=== PATIENT | male | born 1985 | race African-American/Black ===

== ENCOUNTER 2018-04-16 06:57 | Emergency (ER) | payer SELFPAY ==
[2018-04-16 08:03] LABS: #Eosinphils 0.1 thou/uL (0.0-0.7); #Lymphocytes 1.6 thou/uL (1.20-3.40); #Monocytes 1.4 thou/uL (0.11-0.59); #Neutrophils 6.9 thou/uL (1.40-6.50); %Basophils 0.3 % (0.0-1.0); %Eosinophils 0.9 % (0.0-10.0); %Lymphocytes 15.9 % (21.0-51.0); %Monocytes 13.9 % (0.0-10.0); Hemoglobin 14.1 g/dL (14.0-18.0); Mean Corpuscular HGB CONC 32.8 g/dL (32.0-36.0); Mean Corpuscular Hemoglobin 27.6 pg (27.0-31.0); Mean Corpuscular Volume 84.2 fL (78.0-98.0); Mean Platelet Volume 6.2 fL (7.4-10.4); Platelet Count 330 thou/uL (130-400); RBC Distribution Width 12.4 % (11.5-14.5)
[2018-04-16 08:23] LABS: ALT (SGPT) 31 U/L (8-55); AST (SGOT) 27 U/L (5-34); Albumin 4.1 g/dL (3.5-5.0); Alkaline Phosphatase 78 U/L (40-150); Anion Gap 16 mmol/L (10-20); BUN (Urea Nitrogen) 16 mg/dL (8.9-20.6); Calc. Creatinine Clearance 0 mL/min (70-130); Calcium 9.1 mg/dL (7.8-10.44); Carbon Dioxide 27 mmol/L (22-29); Chloride 100 mmol/L (98-107); Estimated GFR-MDRD 83; Globulin 3.3 g/dL (2.4-3.5); Glucose 171 mg/dL (70-105); Lipase 85 U/L (8-78); Protein, Total 7.4 g/dL (6.0-8.3); Sodium 140 mmol/L (136-145)
--- NOTE | 2018-04-16 10:10 | RAD ---
ABDOMEN 2 VIEWS: HISTORY: A 32-year-old male with a history of abdominal pain and constipation. FINDINGS: There is some minimal Gas within borderline-size small bowel loops in the right side of the abdomen. There is minimal scattered gas and fluid within the nondilated small bowel as well as the colon. No free intraperitoneal air. No overt calculus. IMPRESSION: Some borderline dilated small bowel in the right side of the abdomen with some air fluid levels with some scattered gas and fluid in the colon. Findings are nonspecific but raise the possibility of foc al ileus. Depending on clinical concern, a followup CT scan of the abdomen and pelvis might be considered. POS: [facility]
--- NOTE | 2018-04-16 10:17 | ULT ---
RIGHT UPPER QUADRANT ULTRASOUND: HISTORY: Nausea. Diarrhea. Abdominal pain. COMPARISON: None. TECHNIQUE: Utilizing a multihertz transducer, sonographic imaging of the right upper quadrant was performed in t he longitudinal and transverse plane. FINDINGS: The pancreas is obscured by bowel gas. Increased echogenicity of the liver may be due to hepatic steatosis or hepatocellular disease. Subse quent evaluation for hepatic masses and intrahepatic hepatic biliary dilatation is limited. Right he patic lobe is enlarged measuring 20.6 cm. Within the lumen of the gallbladder, there are echogenic foci with posterior acoustic shadowing, comp atible with gallstones. Gallbladder wall is mildly thickened. There is no evidence of pericholecyst ic fluid. [employer] states a negative Loera's sign. Common bile duct is dilated measuring 0.6 cm. Main portal vein is patent. Appropriate directional flow. The right kidney does not demonstrate any hydronephrosis. The right kidney measures 4.5 x 6.1 x 10.3 cm. IMPRESSION: 1. Increased echogenicity of the liver with hepatomegaly. If there is concern for hepatocellular di sease, consider CT. 2. Sonographic evidence of cholelithiasis with findings that are equivocal for cholecystitis. HIDA scan may be beneficial. POS: [facility]
== END 2018-04-16 09:53 | disposition home or self-care (01) ==
LOC: ERS 06:57
DX: K80.50 Calculus of bile duct without cholangitis or cholecystitis without obstruction (principal); K52.9 Noninfective gastroenteritis and colitis, unspecified; I10 Essential (primary) hypertension; F31.9 Bipolar disorder, unspecified; F17.210 Nicotine dependence, cigarettes, uncomplicated; Z79.84 Long term (current) use of oral hypoglycemic drugs; Z71.6 Tobacco abuse counseling
CPT/HCPCS: 36415; 74019; 76705; 80053; 83690; 85025; 99406

== ENCOUNTER 2018-08-14 12:20 | Emergency (ER) | payer SELFPAY ==
[2018-08-14 13:26] LABS: #Eosinphils 0.1 thou/uL (0.0-0.7); #Lymphocytes 1.7 thou/uL (1.20-3.40); #Neutrophils 8.7 thou/uL (1.40-6.50); %Basophils 0.3 % (0.0-1.0); %Eosinophils 1.2 % (0.0-10.0); %Lymphocytes 14.9 % (21.0-51.0); %Monocytes 8.2 % (0.0-10.0); %Neutrophils 75.5 % (42.0-75.0); Hemoglobin 16.5 g/dL (14.0-18.0); Mean Corpuscular HGB CONC 32.4 g/dL (32.0-36.0); Mean Corpuscular Hemoglobin 27.6 pg (27.0-31.0); Mean Corpuscular Volume 85.1 fL (78.0-98.0); Mean Platelet Volume 6.9 fL (7.4-10.4); Platelet Count 331 thou/uL (130-400); RBC Distribution Width 13.3 % (11.5-14.5); Red Blood Cell (RBC) Count 5.98 mill/uL (4.70-6.10); White Blood Cell (WBC) Count 11.5 thou/uL (4.8-10.8)
[2018-08-14 13:37] LABS: Bilirubin Negative (Negative); Blood, Urine Negative (Negative); Clarity CLEAR (Clear); Glucose, Urine (Dipstick) 100 mg/dL (Negative); Leukocyte Negative (Negative); Nitrite Negative (Negative); Protein, Urine (Dipstick) Negative (Neg-Trace); Specific Gravity, Urine 1.007 (1.002-1.036); Urobilinogen 0.2 mg/dL (0.2-1.0); pH, Urine 6.5 (5.0-9.0)
[2018-08-14 13:49] LABS: ALT (SGPT) 38 U/L (8-55); AST (SGOT) 21 U/L (5-34); Albumin 4.5 g/dL (3.5-5.0); Alkaline Phosphatase 69 U/L (40-150); Anion Gap 11 mmol/L (10-20); BUN (Urea Nitrogen) 9 mg/dL (8.9-20.6); Bilirubin, Total 1.4 mg/dL (0.2-1.2); Calc. Creatinine Clearance 0 mL/min (70-130); Calcium 9.5 mg/dL (7.8-10.44); Carbon Dioxide 27 mmol/L (22-29); Chloride 100 mmol/L (98-107); Estimated GFR-MDRD Greater than 90; Globulin 3.4 g/dL (2.4-3.5); Glucose 172 mg/dL (70-105); Magnesium 1.9 mg/dL (1.6-2.6); Phosphorus 2.6 mg/dL (2.3-4.7); Potassium 3.4 mmol/L (3.5-5.1); Protein, Total 7.9 g/dL (6.0-8.3); Sodium 135 mmol/L (136-145)
[2018-08-14 13:53] LABS: Troponin I Less than 0.010 ng/mL (< 0.028)
[2018-08-14] MEDS ORDERED: Ketorolac Tromethamine 30 MG/ML VIAL ONE (14:31)
== END 2018-08-14 15:33 | disposition home or self-care (01) ==
LOC: ERS 12:20
DX: E11.65 Type 2 diabetes mellitus with hyperglycemia (principal); M54.5 Low back pain; I10 Essential (primary) hypertension; F31.9 Bipolar disorder, unspecified; F17.210 Nicotine dependence, cigarettes, uncomplicated
CPT/HCPCS: 36416; 80053; 81003; 82010; 82553; 83735; 84100; 84443; 84484; 85025; 93005; 96361; 96374; J1885